=== PATIENT | male | born 1985 | race Caucasian/White ===

== ENCOUNTER 2020-02-25 21:39 | Emergency (ER) | payer SELFPAY ==
--- NOTE | ~2020-02-25 | XR_ITS ---
EXAMINATION: XR finger 3rd LT min 2V INDICATION: Left third finger pain TECHNIQUE: Three views of the left third finger are obtained. COMPARISON: None available FINDINGS: There is a palmar soft tissue laceration of the third finger overlying the distal interphal angeal joint. The underlying osseous structures are unremarkable. There is no fracture. The joint spa isabelle are normal. No radiopaque foreign body is identified. IMPRESSION: 1. Soft tissue laceration without underlying osseous abnormality. Reviewed, dictated and finalized at location A.
[2020-02-25 22:04] VITALS: BP 138/88; PULSE 88; RESP 20; TEMP 37; O2SAT 95
[2020-02-25] MEDS: TETANUS,DIPHTHERIA,AC PERTUSSIS ADULT 0.5 ML (ADACEL) IM (22:14)
--- NOTE | 2020-02-25 22:27 | ED.WOUNDLAC ---
HPI - Wound/Laceration General Chief Complaint: Wound/Laceration Stated Complaint: cut finger Source: patient Mode of arrival: ambulatory History of Present Illness HPI narrative: this is a 34-year-old gentleman that presents with laceration to the palmar surface of his left 3rd finger that occurred earlier this evening after he was trying to separate some hamburger with some knife and inadvertently cut the tip of his left 3rd finger with a mildly gaping laceration approximately 3cm in length currently no bleeding no numbness or tingling. Onset (ago): hour(s) Extremity Location: Left: hand ( Left 3rd finger laceration) Place: home Patient tetanus UTD: No Context: accidental Associated symptoms: pain Treatments prior to arrival: bandage Related Data Home Medications Medication Instructions Recorded Confirmed No Home Medications 02/25/20 02/25/20 Allergies Allergy/AdvReac Type Severity Reaction Status Date / Time No Known Allergies Allergy Verified 02/25/20 22:12 Review of Systems Review of Systems: All systems reviewed & are unremarkable except as noted in HPI and below PMFSH Past Medical History Medical History (Updated 02/25/20 @ 22:49 by Deyvi Portillo MD) Patient denies medical problems Social History Social History Gender identity (if verbalized by the patient): Male Exam Const: General: no acute distress Orientation/consciousness: patient oriented x3 HENMT: Head: normal to inspection Eyes: Conjunctivae: conjunctivae normal Pupils: Equal, round and reactive pupils present Neck: Neck: normal visual inspection, no lymphadenopathy and no meningeal signs Chest: Chest palpation & inspection: normal inspection of the chest Resp: Effort & Inspection: normal respiratory effort Auscultation: clear to auscultation bilaterally Cardio: Rate: regular rate Rhythm: regular rhythm GI: GI Palp: Yes Soft to palpation Back/Spine/Pelvis: Back: no CVA tenderness Neuro: General: patient oriented x3 and moves all extremities Extrem: Other: 3Cm laceration palmar surface of the distal end of his left 3rd finger mildly gaping. Psych: Appearance: grossly normal Mental Status: mental status grossly normal Thought content: Yes Normal thought content present Course Course Emergency Course: Informed patient of procedure and injected [id number] of lidocaine and placed 8 sutures in his left middle finger. Vital Signs Vital signs: Vital Signs Temperature 37.0 C 02/25/20 22:04 Pulse Rate 88 02/25/20 22:04 Respiratory Rate 20 02/25/20 22:04 Blood Pressure 138/88 02/25/20 22:04 Pulse Oximetry 95 02/25/20 22:04 Temperature 37.0 C 02/25/20 22:04 Pulse Rate 88 02/25/20 22:04 Respiratory Rate 20 02/25/20 22:04 Blood Pressure 138/88 02/25/20 22:04 Pulse Oximetry 95 02/25/20 22:04 Procedures Laceration Laceration 1: Date: 02/25/20 Time: 22:48 Site: hand ( Left 3rd finger) Side (If applicable): left Size (cm): 3 Description: linear Depth: simple, single layer Local Anesthetic: lidocaine 1% Amount of anesthesia used (mL): 5 Pre-repair: wound explored and irrigated ====== Skin Level ====== Skin layer closed with: vicryl Size (cm): 5-0 Number of sutures: 8 Technique: simple, interrupted ====== Subcutaneous Layer ====== ====== Muscle Layer ====== ====== Tendon Layer ====== Critical Care Time Critical Care Time Critical Care Time: No Discharge Plan Discharge Clinical Impression: Laceration Patient Disposition: Home, Self-Care Condition: Stable Instructions: Antibiotic Form Additional Instructions: follow-up with primary care physician in 1 week for suture removal Prescriptions: No Action No Home Medications RF: 0 Follow-up/Referrals: Gómez,Bruc
[2020-02-25] MEDS: LIDOCAINE HCL 1% LOCAL INJ 20 ML VIAL (22:49)
--- NOTE | 2020-02-25 22:49 | PC.NURSE ---
neosporin dressing applied
[2020-02-25 22:50] VITALS: BP 117/70; PULSE 72; RESP 17; TEMP 36.2; O2SAT 97
== END 2020-02-25 22:51 | disposition home or self-care (01) ==
PROVIDERS: Emergency Provider Emergency Medicine; PCP Family Medicine
DX: S61.213A Laceration without foreign body of left middle finger without damage to nail, initial encounter (principal); W26.0XXA Contact with knife, initial encounter
CPT/HCPCS: 12002; 73140; 90471; 90715; 99282; 99283

== ENCOUNTER 2022-07-29 10:04 | Outpatient (CLI) | payer BC, SELFPAY ==
--- NOTE | ~2022-07-29 | CT_ITS ---
EXAMINATION: CT abdomen pelvis wo con DATE: 07/29/2022 10:23 INDICATION: Right flank pain with microhematuria TECHNIQUE: Computed tomography (CT) of the abdomen and pelvis was performed without intravenous contr ast. Automated exposure control and iterative reconstruction technique were employed. The dose-length product was 209.91 mGy-cm. COMPARISON: None FINDINGS: Lung bases are clear. Heart size is normal. No pericardial or pleural effusion. Liver, gallbladder, s pleen, pancreas and bilateral adrenal glands are normal. Kidneys and ureters are normal with no uroli thiasis, hydroureteronephrosis or perinephric/ureteral stranding. Bladder is normal. There are couple phleboliths in the deep pelvis posterior inferior to the level of the ureters. Partially decompresse d bladder is normal. Bowels including the appendix are normal. No free intraperitoneal gas or fluid. No pathologically enlarged abdominal or pelvic lymphadenopathy. Minimal likely physiologic anterior w edging of a few lower thoracic vertebral bodies. IMPRESSION: 1. No urolithiasis or acute intra-abdominal/pelvic process. Reviewed, dictated and finalized at location L. [employer]
== END 2022-07-29 10:05 | disposition home or self-care (01) ==
LOC: CHSIMG 10:06
PROVIDERS: PCP Family Medicine; Visit Provider Physician Assistant
DX: R10.9 Unspecified abdominal pain (principal)
CPT/HCPCS: 74176

== ENCOUNTER 2023-03-31 20:28 | Emergency (ER) | payer BC, SELFPAY ==
[2023-03-31 20:33] VITALS: BP 150/108; PULSE 130; RESP 18; O2SAT 98
--- NOTE | 2023-03-31 20:43 | ED.GENADULT ---
HPI - General Adult General Chief complaint: Psychiatric Symptoms Stated complaint: Unspecified History of Present Illness HPI narrative: Delvis is a presented to the ED via EMS. He reportedly made comments of suicidality and his sister claimed that he took excessive sleeping pills last night. (he has only had Seroquel and venlafaxine filled at the pharmacy) She completed a petition for involuntary hold but the documentation has no talent acquisition program manager or other signatures other than his sisters. He is angry but completely denies any SI or HI. He admits to feeling down with work and finance stress but denies any intention of hurting himself. Related Data Home Medications Medication Instructions Recorded Confirmed No Home Medications 02/25/20 02/25/20 Allergies Allergy/AdvReac Type Severity Reaction Status Date / Time No Known Allergies Allergy Verified 03/31/23 20:39 Review of Systems Constitutional: Constitutional: Reports no additional constitutional complaints [facility] Past Medical History Medical History (Updated 04/01/23 @ 00:00 by Jill Daamanda) Patient denies medical problems Social History Social History Substance use type: unknown Gender identity (if verbalized by the patient): Male Exam Const: General: healthy appearing and no acute distress Nutritional Appearance: well nourished Orientation/consciousness: patient oriented x3 Limitations: no limitations HENMT: Head: normal to inspection Ears: external ears normal Face/Nose/Sinus: Normal external nose present Face and sinus: normal facial exam Eyes: Conjunctivae: conjunctivae normal Pupils: Equal, round and reactive pupils present EOM: EOMs intact bilaterally Neck: Neck: normal visual inspection Chest: Chest palpation & inspection: normal inspection of the chest Resp: Effort & Inspection: normal respiratory effort Auscultation: clear to auscultation bilaterally Cardio: Rate: regular rate Rhythm: regular rhythm GI: Inspection: distended : General: Yes bladder normal to palpation Back/Spine/Pelvis: Back: no CVA tenderness Skin: General skin exam: normal color Rashes: no rashes Neuro: General: patient oriented x3 and moves all extremities Cranial nerves: Yes Nystagmus not present Extrem: General: normal to inspection Psych: Mental Status: mental status grossly normal Other: He was a bit agitated at first but quickly calmed down Course Course Emergency Course: Made multiple calls to [facility] and his sister to get more information. [facility] agreed to evaluate him with medical clearance. Anju of [facility] evaluated him and concluded he is not a threat to himself or others and he was discharged. They will perform a 24 hour follow up. Vital Signs Vital signs: Vital Signs Pulse Rate 130 H 03/31/23 20:33 Respiratory Rate 18 03/31/23 20:33 Blood Pressure 150/108 H 03/31/23 20:33 Pulse Oximetry 98 03/31/23 20:33 Oxygen Delivery Room Air 03/31/23 20:33 Temperature 97.4 F L 03/31/23 21:04 Pulse Rate 130 H 03/31/23 20:33 Respiratory Rate 18 03/31/23 20:33 Blood Pressure 150/108 H 03/31/23 20:33 Pulse Oximetry 98 03/31/23 20:33 Oxygen Delivery Room Air 03/31/23 20:33 Medical Decision Making Vital Signs Vital Signs: Vital Signs Pulse Rate 130 H 03/31/23 20:33 Respiratory Rate 18 03/31/23 20:33 Blood Pressure 150/108 H 03/31/23 20:33 Pulse Oximetry 98 03/31/23 20:33 Oxygen Delivery Room Air 03/31/23 20:33 Temperature 97.4 F L 03/31/23 21:04 Pulse Rate 130 H 03/31/23 20:33 Respiratory Rate 18 03/31/23 20:33 Blood Pressure 150/108 H 03/31/23 20:33 Pulse Oximetry 98 03/31/23 20:33 Oxygen Delivery Room Air 03/31/23 20:33 Discharge Plan Discharge Clinical Impression: Major depressive disorder Patient Disposition: Home, Self-Care Condition: Stable Instr
--- NOTE | 2023-03-31 20:57 | PC.NURSE ---
2031-call from caller stating to be Julio César schumacher and states she is Delvis sister who filled out the 72 hour hold involuntary form and I was told I could call [facility] and have him transferred to [facility] for a 72 hour hold because he tried to physically harm himself. abstract writer acknowledged caller and advised pt was present in ER and would be assessed/evaluated by ER physician. abstract writer also inquired as to what Julio César saw pt do. Julio César advised I didn't see him do it but he said he took pills and he had scratched the label off the bottle, i tried to call his doctor to see what the medication was and they wouldn't tell me because im not on his chart to have information. Julio César continues and states I marked on the form that i would like to be notified of what's going on with him and where he is transferred to. abstract writer acknowledged and advised Julio César primary rn/abstract writer would speak with pt and obtain who he would like notified and who information was able to be given to regarding care/plan of care. Julio César verbalized understanding. call was ended. abstract writer notified primary rn, Patricia and physician, Dr. Moon.
--- NOTE | 2023-03-31 20:57 | PC.NURSE ---
Spoke with Linda from [facility] regarding psych evaluation for the patient. Pt is currently refusing workup at this time because he feels like he does not need to be here. Pt's sister and her friend who is an off duty mental health coordinator filled out a petition involuntary form for this pt due to some comments that he made. First the patient's sister stated that the pt took the medication last night and on the involuntary form it says that the pt disclosed that he took the medication today. Pt reports that he took the prescribed medication for sleep last night, not to harm himself. Linda from [facility] informed staff that the involuntary form is not valid because the form is not filled out completely and it hasn't been signed by a harness mender. Pt is a/o4 and is still denying SI/HI. Linda from [facility] is attempting to contact the pt's sister at this time for further clarification and she reports that she will call back.
[2023-03-31 21:04] VITALS: TEMP 36.3
--- NOTE | 2023-03-31 21:46 | PC.NURSE ---
Anju from [facility] reports that she will be here in about 45 minutes to evaluate the patient.
--- NOTE | 2023-03-31 22:07 | PC.NURSE ---
Pt reports that he has been sitting her too long and he wants to leave. Pt informed that we are waiting for [facility] to come and assess him. Pt speaking in an aggressive tone to this nurse at this time. Pt offered, water, blanket, lights dimmed, and he declined at this time.
--- NOTE | 2023-03-31 22:45 | PC.NURSE ---
Linda from [facility] has just arrived to evaluate the patient.
[2023-03-31 23:46] VITALS: BP 132/85; PULSE 93; RESP 18; TEMP 36.4; O2SAT 98
== END 2023-03-31 23:51 | disposition home or self-care (01) ==
PROVIDERS: Emergency Provider Family Medicine; PCP Family Medicine
DX: F32.9 Major depressive disorder, single episode, unspecified (principal)
CPT/HCPCS: 99284